=== PATIENT | female | born 1950 ===

== ENCOUNTER 2020-11-05 07:01 | Day surgery (SDC) | payer OTHER ==
[~2020-11-05] VITALS: Ht 160 cm; Wt 65.8 kg
[2020-11-05] MEDS ORDERED: fentaNYL citrate 0.05 MG/ML VIAL ONE (08:54)
[2020-11-05] MEDS ORDERED: LIDOCAINE 2% 100 MG/5 ML UJET TP ONE ×2 (08:54→09:30)
[2020-11-05] MEDS ORDERED: fentaNYL citrate 0.05 MG/ML VIAL IVP ONE (09:30)
== END 2020-11-05 10:00 | disposition home or self-care (01) ==
LOC: MOR 07:01 → MMU 07:02 → MOR 10:00
PROVIDERS: ATTEND Internal Medicine Gastroenterology
DX: R19.5 Other fecal abnormalities (principal); D12.4 Benign neoplasm of descending colon; K64.4 Residual hemorrhoidal skin tags; Z79.899 Other long term (current) drug therapy
CPT/HCPCS: 45385; J3010